=== PATIENT | female | born 1970 | race Asian ===

== ENCOUNTER 2020-07-23 15:52 | Emergency (ER) | payer OTHER ==
[~2020-07-23] VITALS: Ht 160 cm; Wt 56.0 kg
[2020-07-23 16:35] VITALS: BP 123/48
--- NOTE | 2020-07-23 18:31 | PHYS DOC ---
Past History Past Medical History: Other Additional Past Medical Histor: GRAVES DISEASE (YULY LEO APRN) Past Surgical History: (YULY LEO APRN) Alcohol Use: None Drug Use: None (YULY LEO APRN) Adult General Chief Complaint Chief Complaint: SKIN RASH/ABSCESS HPI HPI Patient is a 50-year-old female who presents emergency department complaining of allergic reaction. Patient states that she was seen last Sunday at the [facility] for a abscess on her right shoulder and was started on Bactrim DS. Patient states that she took it as directed and noticed that yesterday she started to break out in hives. Patient states that she took Benadryl 50 mg at 7 AM and then again 50 mg at noon without relief of her hives symptoms. Patient states that she does not itch. Patient states that she noticed some minor itching before she took Benadryl but has not experienced any itching since taking her Benadryl at 7 AM. Patient denies any shortness of breath, patient denies feeling any numbness or tingling to her tongue. Patient denies any concerns for airway compromise. Patient denies any nausea, vomiting, diarrhea, or constipation. Patient denies any chest pain, chest congestion or nasal congestion. Patient believes that this could be related to the coronavirus. Patient states that she was running a high fever of 99.0 at home and is now concerned she might have the coronavirus. Patient denies any other symptoms of the coronavirus. No one else living with the patient is having the same s ymptoms that she. Patient denies recent travel. (YULY LEO APRN) Review of Systems Review of Systems 14 body systems of review of systems have been reviewed. See HPI for pertinent positives and negative responses, otherwise all other systems are negative, nonpertinent or noncontributory. (YULY LEO APRN) Allergies Allergies Allergies Coded Allergies Type Severity Reaction Last Updated Verified No Known Drug Allergies 07/23/20 No (YULY LEO APRN) Physical Exam Physical Exam Constitutional: Well developed, well nourished, no acute distress, non-toxic appearance. 50-year-old female in no apparent distress. HENT: Normocephalic, atraumatic, bilateral external ears normal, oropharynx moist, no oral exudates, nose normal., Oropharynx moist, pink, no uvular edema, no peritonsillar edema, no laryngeal edema. Patient speaks in normal voice tones, no drooling, no trismus, no lymphadenopathy of the head or neck appreciated. Eyes: PERRLA, EOMI, conjunctiva normal, no discharge. Neck: Normal range of motion, no tenderness, supple, no stridor. Cardiovascular:Heart rate regular rhythm, no murmur, heart sounds S1-S2 to auscultation. Lungs & Thorax: Bilateral breath sounds clear to auscultation all lung oropeza, no adventitious lung sounds appreciated. Abdomen: Bowel sounds normal, soft, no tenderness, no masses, no pulsatile masses. Skin: Warm, dry, raised lightly erythematous urticaria rash to face, anterior and posterior trunk, bilateral upper and lower extremities. No other skin lesions appreciated. Back: No tenderness, no CVA tenderness. Extremities: No tenderness, no cyanosis, no clubbing, ROM intact, no edema. Distal cap refill less than 2 seconds, +2/4 pulses. Neurologic: Alert and oriented X 3, normal motor function, normal sensory function, no focal deficits noted. Psychologic: Affect normal, judgement normal, mood normal. (YULY LEO APRN) Current Patient Data Vital Signs Vital Signs Date Time Temp Pulse Resp B/P (MAP) Pulse Ox O2 Delivery O2 Flow Rate FiO2 07/23/20 16:35 100.0 97 18 123/48 (73) 98 (YULY LEO APRN) EKG EKG [] (YULY LEO APRN) Radiology/Procedures Radiology/Procedures [] (YULY LEO APRN) Heart Score C/O Chest Pain: No Risk Factors: Risk Factors: DM, Current or recent (<one month) smoker, HTN, HLP, family history of CAD, obesity. Risk Scores: Risk Factors: DM, Current or recent (<one month) smoker, HTN, HLP, family history of CAD, obesity. (YULY LEO APRN) Course & Med Decision Making Course & Med Decision Making Pertinent Labs and Imaging studies reviewed. (See chart for details) 50-year-old female, vital signs reviewed, presents emergency department concerning an allergic reaction that started yesterday. Patient's physical examination consistent with acute urticaria. After lengthy investigation of patient's daily activities to include any new soaps, clothes, foods, or other environmental exposure to allergens. It was found that the patient had started on Bactrim DS a week ago and has never been on Bactrim DS in the past. This is most likely an allergic reaction to the Bactrim DS. We will treat in the emergency department today with 1 L normal saline, 40 mg Pepcid IV, 10 mg IV Decadron, 25 mg IV Benadryl, 80 mg IM Depo-Medrol. After an examination of patient's right shoulder abscess, there is no abscess appreciated at this time. No need to change antibiotic regimen. Patient only had 4 tablets left. Patient is amenable to this plan. After a period of time, reevaluation of the patient, the patient remains in no apparent distress, however patient's urticaria remains unchanged. Will order 25 mg of Benadryl IV additional. After period of time, reevaluation of the patient, patient's urticaria is resolving. Patient states she is not itching. Discussed with patient home care with hydroxyzine for itching, Pepcid twice a day for the next 5 days, Benadryl twice a day for the next 1 to 2 days, return to the emergency department immediately for any airway compromise or worsening of symptoms. Patient is to follow-up with her primary care doctor at the [facility] on Sunday. Discussed with patient to avoid any future sulfa medications. Patient gave verbal understanding that she has most likely a sulfa allergy. Patient was discharged home without incident. (YULY LEO APRN) Course & Med Decision Making Did not see or evaluate patient. Agree with COST REPORT CLERK's work-up and disposition per note. (STONE YOO MD) Dragon Disclaimer Dragon Disclaimer This electronic medical record was generated, in whole or in part, using a voice recognition dictation system. (YULY LEO APRN) Departure Departure: Impression: Primary Impression: Acute urticaria Additional Impression: Allergic reaction Disposition: HOME / SELF CARE / HOMELESS Condition: GOOD Referrals: MARTA COFFMAN DO (PCP) Additional Instructions: Please take Pepcid twice a day for the next 5 days, please take the prednisone once a day for the next 5 days, please take the Benadryl twice a day for at least 1-2 more days. You may take longer if needed. Please follow-up with your doctor at the [facility] on Sunday for reevaluation of your symptoms. Please let them know that I have recommended you no longer take sulfa medications related to this episode. Please return to the emergency department immediately for worsening symptoms or other concerns. EMERGENCY DEPARTMENT GENERAL DISCHARGE INSTRUCTIONS Thank you for coming to [facility] (ED) today and trusting us with you care. We trust that you had a positivie experience in our Emergency Department. If you wish to speak to the department management, you may call the director at [phone]. YOUR FOLLOW UP INSTRUCTIONS ARE FOLLOWS: 1. Do you have a private Doctor? If you do not have a private doctor, please ask for a resource list of physicians or clinics that may be able to assist you with follow up care. 2. The Emergency Physician has interpreted your x-rays. The X-Ray specialist will also review them. If there is a change in the findings, you will be notified in 48 hours when at all possible. 3. A lab test or culture has been done, your results will be reviewed and you will be notified if you need a change in treatment. ADDITIONAL INSTRUCTIONS AND INFORMATION: 1. Your care today has been supervised by a physician who is specially trained in emergency care. Many problems require more than one evaluation for a complete diagnosis and treatment. We recommend that you schedule your follow up appointment as recommended to ensure complete treatment of you illness or injury. If you are unable to obtain follow up care and continue to have a problem, or if your condition worsens, we recommend that you return to the ED. 2. We are not able to safely determine your condition over the phone nor are we able to give sound medical advice over the phone. For these safety reasons, if you call for medical advice we will ask you to come to the ED for further evaluation. 3. If you have any questions regarding these discharge instructions please call the ED at [phone]. SAFETY INFORMATION: In the interest of safety, wellness, and injury prevention; we encourage you to wear your sealbelt, if you smoke; quite smoking, and we encourage family to use a protective helmet for bicycling and other sporting events that present an increased risk for head injury. IF YOUR SYMPTOMS WORSEN OR NEW SYMPTOMS DEVELOP, OR YOU HAVE CONCERNS ABOUT YOUR CONDITION; OR IF YOUR CONDITION WORSENS WHILE YOU ARE WAITING FOR YOUR FOLLOW UP APPOINTMENT; EITHER CONTACT YOUR PRIMARY CARE DOCTOR, THE PHYSICIAN WHOSE NAME AND NUMBER YOU WERE GIVEN, OR RETURN TO THE ED IMMEDIATELY. Scripts Prednisone (PREDNISONE) 20 Mg Tablet 1 TAB PO DAILY for allergies for 5 Days, #5 TAB 0 Refills Prov: YULY LEO APRN 07/23/20 Hydroxyzine Hcl (HYDROXYZINE HCL) 25 Mg Tablet 1 TAB PO TID PRN PRN for ITCHING for 5 Days, #15 TAB 0 Refills Prov: YULY LEO APRN 07/23/20 Famotidine (PEPCID) 20 Mg Tablet 20 MG PO BID for dyspepsia for 5 Days, #10 TAB 0 Refills Prov: YULY LEO APRN 07/23/20 Diphenhydramine Hcl (BENADRYL) 25 Mg Capsule 1 CAP PO TID PRN PRN for ALLERGIES for 5 Days, #15 CAP 0 Refills Prov: YULY LEO APRN 07/23/20 Problem Qualifiers Additional Impression: Allergic reaction Encounter type: initial encounter Qualified Codes: T78.40XA - Allergy, unspecified, initial encounter YULY LEO APRN Jul 23, 2020 18:31 STONE YOO MD Jul 23, 2020 22:44
[2020-07-23] MEDS ORDERED: FAMOTIDINE 20 MG/2 ML VIAL IVP ONE (18:45)
[2020-07-23] MEDS ORDERED: methylPREDNISolone ACETATE 80 MG/ML VIAL. IM ONE (18:45)
[2020-07-23] MEDS ORDERED: diphenhydrAMINE 50 MG/ML VIAL IVP ONE ×2 (18:45→19:30)
[2020-07-23] MEDS ORDERED: DEXAMETHASONE SOD PHOS 10 MG/ML VIAL. IVP ONE (18:45)
[2020-07-23] MEDS ORDERED: IV NORMAL SALINE 1,000ML 1,000 ML IV ONE (19:00)
[2020-07-23] MEDS ORDERED: PRED20TA PO (20:19)
[2020-07-23] MEDS ORDERED: DIPH25CA58 PO (20:19)
[2020-07-23] MEDS ORDERED: HYDR25TA PO (20:19)
[2020-07-23] MEDS ORDERED: FAMO-63 PO (20:19)
== END 2020-07-23 20:25 | disposition home or self-care (01) ==
LOC: ER 15:52
DX: L50.0 Allergic urticaria (principal); Z20.822 Contact with and (suspected) exposure to COVID-19; Z88.2 Allergy status to sulfonamides
CPT/HCPCS: 96361; 96372; 96374; 96375; 96376; 99284; J1040; J1100; J1200; J3490; J7030; U0003; C9803; U0005